=== PATIENT | female | born 1985 | race Caucasian/White ===

== ENCOUNTER 2022-05-17 05:02 | Emergency (ER) | payer OTHER ==
[~2022-05-17] VITALS: Ht 172.7 cm; Wt 80.5 kg
[2022-05-17 05:12] VITALS: TEMP 98.2
[2022-05-17 07:06] VITALS: BP 128/72; PULSE 61
== END 2022-05-17 07:07 | disposition home or self-care (01) ==
LOC: COL.ER 05:02
DX: G43.909 Migraine, unspecified, not intractable, without status migrainosus (principal)
CPT/HCPCS: J0780; J1200; J1885; J7030